=== PATIENT | male | born 1955 | race Caucasian/White ===

== ENCOUNTER 2017-09-22 19:07 | Emergency (ER) | payer BC ==
[2017-09-22 19:17] VITALS: TEMP 97.7
[2017-09-22] MEDS ORDERED: HYDROmorphone 0.5 MG/0.5 ML SYRINGE IVP STA (19:18)
--- NOTE | 2017-09-22 19:21 | ED ---
General Adult HPI - General Chief complaint: Fall Stated complaint: fall Time Seen by Provider: 09/22/17 19:15 Source: patient, EMS, RN notes reviewed Mode of arrival: EMS Limitations: no limitations - History of Present Illness Initial comments: This is a 62-year-old male who presents emergency Department complaining of right shoulder pain. Patient states he fell in the kitchen because he thinks he stepped on his laces of his boots. Patient states he fell forward hit his arm on the counter since then he's had right shoulder pain. Patient states he has no numbness or weakness. Patient is able to move his fingers and feel a sensation of his fingers. Patient denies any head or neck injury. Patient denies any loss consciousness. She denies any chest pain abdominal pain or lower extremity pain. - Related Data Home Medications Medication Instructions Recorded Confirmed Multivitamins, Thera [Multivitamin 1 tab PO DAILY 09/22/17 09/22/17 (formulary)] NIFEdipine [NIFEdipine ER] 30 mg PO DAILY 09/22/17 09/22/17 Pravastatin Sodium [Pravachol] 20 mg PO HS 09/22/17 09/22/17 Previous Rx's Medication Instructions Recorded Ibuprofen [Motrin] 600 mg PO Q6HR PRN #20 tab 09/22/17 Allergies Allergy/AdvReac Type Severity Reaction Status Date / Time No Known Allergies Allergy Unverified 09/22/17 19:40 Review of Systems ROS Statement: Those systems with pertinent positive or pertinent negative responses have been documented in the HPI. ROS Other: All systems not noted in ROS Statement are negative. Past Medical History Past Medical History: Hyperlipidemia, Hypertension History of Any Multi-Drug Resistant Organisms: None Reported Past Surgical History: No Surgical Hx Reported Past Psychological History: No Psychological Hx Reported Smoking Status: Never smoker Past Alcohol Use History: Occasional Past Drug Use History: None Reported General Exam - General Exam Comments Initial Comments: GENERAL Patient is well-developed and well-nourished. Patient is in moderate distress. EYES Patient's pupils are equal and round. Extraocular motion is intact SKIN Unremarkable NEURO The patient is alert and oriented 3 PYSCH Patient has normal interpersonal interactions. MUSCULOSKELETAL Patient's right shoulder started to palpation also there appears to be a deficit also consistent with a dislocation. Patient has good pulses and normal sensation of the right fingertips Limitations: no limitations Course Vital Signs 06/09/22/17 09/22/17 19:15 20:21 20:28 Temperature 97.7 F Pulse Rate 90 86 89 Respiratory 22 18 18 Rate Blood Pressure 176/88 164/87 168/86 O2 Sat by Pulse 99 99 99 Oximetry 09/22/17 09/22/17 20:33 20:36 Temperature Pulse Rate 103 H 86 Respiratory 18 18 Rate Blood Pressure 157/85 O2 Sat by Pulse 100 98 Oximetry Procedures - Orthopedic Joint Reduction Joint #1 Consent Obtained: written consent Time Out Performed: Yes Side: right Joint Reduction Location: shoulder Analgesia: procedural sedation Shoulder Technique Used (if applicable): traction/counter-traction, external rotation Post-Reduction Neuro Exam: intact Post-Reduction Vascular Exam: intact Post Reduction X-Ray Obtained: Yes Post Reduction X-Ray Results: reduced Splint Applied: Yes Patient Tolerated Procedure: well - Procedural Sedation Procedural Sedation Start Time: 20:30 Procedural Sedation Stop Time: 20:55 Indications: fracture/dislocation reduction Preparation: radiologic technologist applied, pulse oximeter, capnometry used, supplemental O2 applied IV Etomidate Dose (mgs): 15 Complications: none Patient Tolerated Procedure: well Medical Decision Making - Medical Decision Making X-ray shows a dislocated shoulder. Repeat x-ray was done after reduction shows a reduced shoulder Disposition Clinical Impression: Dislocation of right shoulder joint Instructions: Shoulder Dislocation (ED) Prescriptions: Ibuprofen [Motrin] 600 mg PO Q6HR PRN #20 tab PRN Reason: For pain Is patient prescribed a controlled substance at d/c from ED?: No Referrals: Ronen Ortega DO [Primary Care Provider] - 1-2 days Adrián Cid MD [STAFF PHYSICIAN] - 1-2 days Time of Disposition: 20:40
--- NOTE | 2017-09-22 19:54 | XR ---
EXAMINATION TYPE: XR shoulder complete RT DATE OF EXAM: 09/22/2017 COMPARISON: NONE HISTORY: Shoulder pain TECHNIQUE: 4 views FINDINGS: There is anterior dislocation of the humeral head. I see no fracture. IMPRESSION: Anterior dislocation of the shoulder joint.
[2017-09-22] MEDS ORDERED: ETOMIDATE 2 MG/ML 10 ML VIAL IVP STA (20:49)
[2017-09-22 20:52] VITALS: RESP 18
--- NOTE | 2017-09-22 21:04 | XR ---
EXAMINATION TYPE: XR shoulder limited RT DATE OF EXAM: 09/22/2017 COMPARISON: Today HISTORY: Pain TECHNIQUE: Single view FINDINGS: There is anatomic reduction of the glenohumeral joint. I see no fracture. IMPRESSION: Anatomic reduction compared to exam earlier today. No fracture seen.
[2017-09-22 21:13] VITALS: BP 154/89; PULSE 82
== END 2017-09-22 21:01 ==
LOC: EC 19:07
DX: S43.004A Unspecified dislocation of right shoulder joint, initial encounter (principal); E78.5 Hyperlipidemia, unspecified; I10 Essential (primary) hypertension; Z79.899 Other long term (current) drug therapy; W19.XXXA Unspecified fall, initial encounter; Y92.000 Kitchen of unspecified non-institutional (private) residence as the place of occurrence of the external cause
CPT/HCPCS: 73020; 73030; 99283; 23650; 99152; 99153; 96374; J1170

== ENCOUNTER → 2023-10-06 | Outpatient (CLI) | payer MEDICARE ==
--- NOTE | 2023-10-06 10:04 | NM ---
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 The patient exercised using a EDWARD protocol and 1 minute prior to peak exercise was injected with 25.4 mCi Tc 99m Sestamibi - Stress images obtained 20 minutes post injecti on. FINDINGS: Targeted heart rate was achieved during performance of the study. Review of stress and rest SPECT abraham ges demonstrates no distinct perfusion abnormality. Gated analysis shows normal wall motion with an estimated left ventricular ejection fraction of 58 %. IMPRESSION: No scintigraphic evidence for reversible ischemia
--- NOTE | 2023-10-06 10:07 | CA ---
Exercise Nuclear Stress Test Report Name: Raj Hernandez Exam Date: 10/06/2023 08:55 Exam Location: [facility] Stress Ht (in): 70 Wt (lb): 180 BSA: 2.00 Ordering Phys: Corinna Ashraf MD Referring Phys: AURORA,, Technologist: ITALIA,, Age: 68 Gender: M : 1955 Procedure CPT: Indications: I25.10 ATHSCL HEART DISEASE OF [place] CORONARY ART ICD-10 Codes: Patient History: ASCAD on CT Medications: Meds past 24 hrs: Pretest Chest Pain: STRESS TEST Iván Protocol Exercise Duration (min:sec): 10:[address] Depressions (mm): 0 Angina Score: 0 Saldaña Score: 10 Resting HR (bpm): 73 Peak HR (bpm): 147 Resting BP (mmHg): 166 / 95 Peak BP (mmHg): / 84 MPHR: 154 Target HR: 131 % MPHR: 95 METS: 11.5 Total Dose: Peak Dose: Atropine: Double Product: BP Response: Stress Termination: Reached target heart rate Stress Symptoms: No chest pain or symptoms Stress Summary: The patient's target heart rate was achieved, The hemodynamic response to exercise was normal ECG ANALYSIS Resting ECG: Sinus rhythm. Normal conduction. No arrhythmias. Normal repolarization. Stress ECG: No ECG evidence of ischemia with exercise. Ventricular premature contraction. CONCLUSIONS Patient falls into low-risk group (DTS >= +5). This associates the patient with an annual CV mortality <= 0.5%. Good exercise tolerance with no evidence of electrocardiographic changes with exercise Nuclear images will be reported separately Dr. Geoff West MD (Electronically Signed) Final Date: 06 October 2023 10:05
== END | disposition home or self-care (01) ==
LOC: RADNMMAIN 07:39
PROVIDERS: ATTEND Internal Medicine
DX: I25.10 Atherosclerotic heart disease of native coronary artery without angina pectoris (principal); E83.52 Hypercalcemia
CPT/HCPCS: 93017; 78452; A9500

== ENCOUNTER 2023-10-31 07:00 | Emergency (ER) | payer MEDICARE ==
[2023-10-31 07:08] VITALS: BP 129/74; PULSE 69; RESP 16; TEMP 97.8
[2023-10-31] MEDS: MORPHINE SULFATE 2 MG/ML SYRINGE IVP STA (07:37)
[2023-10-31] MEDS: LIDOCAINE 4% PATCH TOPICAL ONE (07:37)
[2023-10-31] MEDS: SODIUM CHLORIDE 0.9% 1,000 ML IV STA (07:37)
[2023-10-31] MEDS: KETOROLAC 15 MG/ML 1 ML VIAL IVP STA (07:37)
--- NOTE | 2023-10-31 07:44 | ED ---
Fall HPI - General Chief Complaint: Fall Stated Complaint: Fall Time Seen by Provider: 10/31/23 07:08 Source: patient, RN notes reviewed Mode of arrival: EMS Limitations: no limitations - History of Present Illness Initial Comments: This is a 68-year-old male who presents to the emergency department for a fall. Patient states that he was standing at his sink this morning after going to the bathroom and fell, landing with his back and left rib cage on the side of the bathtub. He is unsure how he fell. Denies any loss of consciousness or hitting his head. He did not have any chest pain or shortness of breath prior to the fall and is unsure if he slipped, lost his balance, or what exactly caused this. Denies any history of similar symptoms in the past. States that he did have a negative nuclear stress test earlier this month. Currently having pain over the left rib cage and mid back. Denies any other injuries. Not taking any blood thinners. States that after the fall he felt like it took his breath away and he was somewhat dizzy. Those symptoms have since started to subside, however he is still having fairly severe pain. MD Complaint: fall - Related Data Home Medications Medication Instructions Recorded Confirmed Multivitamins, Thera [Multivitamin 1 tab PO DAILY 09/22/17 09/22/17 (formulary)] NIFEdipine [NIFEdipine ER] 30 mg PO DAILY 09/22/17 09/22/17 Pravastatin Sodium [Pravachol] 20 mg PO HS 09/22/17 09/22/17 Previous Rx's Medication Instructions Recorded Ibuprofen [Motrin] 600 mg PO Q6HR PRN #20 tab 09/22/17 Cyclobenzaprine [Flexeril] 5 - 10 mg PO TID PRN #30 tablet 10/31/23 Lidocaine 5% Patch [Lidoderm 5% 1 patch TOPICAL DAILY PRN #30 patch 10/31/23 Patch] Naproxen Sodium 550 mg PO BID PRN #30 tablet 10/31/23 Allergies Allergy/AdvReac Type Severity Reaction Status Date / Time No Known Allergies Allergy Verified 10/31/23 07:08 Review of Systems ROS Statement: Those systems with pertinent positive or pertinent negative responses have been documented in the HPI. ROS Other: All systems not noted in ROS Statement are negative. Past Medical History Past Medical History: Hyperlipidemia, Hypertension History of Any Multi-Drug Resistant Organisms: None Reported Past Surgical History: No Surgical Hx Reported Past Psychological History: No Psychological Hx Reported Smoking Status: Never smoker Past Alcohol Use History: Occasional Past Drug Use History: None Reported General Exam Limitations: no limitations General appearance: alert, in no apparent distress Head exam: Present: atraumatic, normocephalic, normal inspection Eye exam: Present: normal appearance, PERRL, EOMI. Absent: scleral icterus, conjunctival injection, periorbital swelling Respiratory exam: Present: normal lung sounds bilaterally. Absent: respiratory distress, wheezes, rales, rhonchi, stridor Cardiovascular Exam: Present: regular rate, normal rhythm, normal heart sounds. Absent: systolic murmur, diastolic murmur, rubs, gallop, clicks GI/Abdominal exam: Present: soft, other (Tenderness to palpation over the left rib cage). Absent: distended Back exam: Present: other (Tenderness to palpation over the mid back) Neurological exam: Present: alert, oriented X3, CN II-XII intact Psychiatric exam: Present: normal affect, normal mood Course Vital Signs 10/31/23 07:01 Temperature 97.8 F Pulse Rate 69 Respiratory 16 Rate Blood Pressure 129/74 O2 Sat by Pulse 93 L Oximetry Medical Decision Making - Medical Decision Making This is a 68-year-old male who presents to the emergency department for pain in the left rib cage and back after a fall. Was pt. sent in by a medical professional or institution? @ -No Did you speak to anyone other than the patient for history? @ -No Did you review nursing and triage notes? @ -Yes, and I agree, it is accurate with regards to the patient's symptoms. Were old charts reviewed? @ -No Differential Diagnosis? @ -Differential rib/back pain: Rib fracture, rib contusion, back fracture, pulmonary contusion, pneumothorax, this is not meant to be an all-inclusive list. EKG interpreted by me (3pts min.)? @ -EKG interpreted by me demonstrating the following: Sinus rhythm. Ventricular rate 66 bpm, OR interval 198 ms, QRS duration 100 ms, QTc 397 ms. X-rays interpreted by me (1pt min.)? @ -X-ray of the chest and left rib cage obtained. My interpretation identifies no acute fractures. X-ray of the thoracic spine obtained. My interpretation also identifies no acute fractures. CT interpreted by me (1pt min.)? @ -Not obtained U/S interpreted by me (1pt. min.)? @ -Not obtained What testing was considered but not performed? (CT, X-rays, U/S, labs)? Why? @ -None What meds were considered but not given? Why? @ -None Did you discuss the management of the patient with other professionals? @ -No Did you reconcile home meds? @ -No Was smoking cessation discussed for >3mins.? @ -No Was critical care preformed (if so, how long)? @ -No Were there social determinants of health that impacted care today? How? (Homelessness, low income, unemployed, alcoholism, drug addiction, transportation, low edu. Level, literacy, decrease access to med. care, fdc, rehab)? @ -No Was there de-escalation of care discussed even if they declined? (Discuss DNR or withdrawal of care, Hospice)? @ -No What co-morbidities impacted this encounter? (DM, HTN, Smoking, COPD, CAD, Cancer, CVA, Hep., AIDS, mental health diagnosis, sleep apnea, morbid obesity)? @ -None Was patient admitted / discharged? @ -Discharged. Given that the circumstances around the fall were not entirely clear, we did proceed with more of a workup including lab work and an EKG. Lab work unremarkable. X-ray of the chest and left rib cage obtained revealing no acute process. X-ray of the thoracic spine also had no acute findings. I did order a UA, however the patient was unable to provide a urine sample in the emergency department. Pain was improved while in the emergency department and he was also treated with IV fluids. We discussed that hairline or small nondisplaced fractures are not always visualized on x-rays and I did offer a CT scan for further evaluation. However, given that this would not necessarily change the treatment plan, especially with regards to rib fractures, patient opted to avoid it at this time and he was comfortable with discharge home. Prescription for naproxen, Flexeril, and lidocaine patches provided with dosing instructions reviewed. He was also sent home with an incentive spirometer and advised to take several deep breaths an hour to reduce the risk of developing a secondary pneumonia. Patient discharged home in stable condition and advised to have close follow-up with his PCP. Case discussed with ED attending Dr. Mcmullen. Return precautions reviewed in depth, the patient is instructed to return to the emergency department with any new, worsening, or concerning symptoms. Patient verbalized understanding. Undiagnosed new problem with uncertain prognosis? @ -None Drug Therapy requiring intensive monitoring for toxicity (Heparin, Nitro, Insulin, Cardizem)? @ -None Were any procedures done? @ -None Diagnosis/symptom? @ -Fall, left rib contusion Acute, or Chronic, or Acute on Chronic? @ -Acute Uncomplicated (without systemic symptoms) or Complicated (systemic symptoms)? @ -Uncomplicated Side effects of treatment? @ -None Exacerbation, Progression, or Severe Exacerbation] @ -Not applicable Poses a threat to life or bodily function? @ -Unlikely - Lab Data Result diagrams: 10/31/23 07:51 10/31/23 07:51 Lab Results 10/31/23 10/31/23 10/31/23 Range/Units 07:51 07:51 07:51 WBC 6.1 (3.8-10.6) k/uL RBC 5.01 (4.30-5.90) m/uL Hgb 16.2 (13.0-17.5) gm/dL Hct 50.4 (39.0-53.0) % MCV 100.6 H (80.0-100.0) fL MCH 32.4 (25.0-35.0) pg MCHC 32.2 (31.0-37.0) g/dL RDW 13.3 (11.5-15.5) % Plt Count 153 (150-450) k/uL MPV 9.5 Neutrophils % 73 % Lymphocytes % 18 % Monocytes % 6 % Eosinophils % 1 % Basophils % 0 % Neutrophils # 4.4 (1.3-7.7) k/uL Lymphocytes # 1.1 (1.0-4.8) k/uL Monocytes # 0.4 (0-1.0) k/uL Eosinophils # 0.0 (0-0.7) k/uL Basophils # 0.0 (0-0.2) k/uL PT 10.6 (10.0-12.5) sec INR 1.0 (<1.2) Sodium 137 (137-145) mmol/L Potassium 4.6 (3.5-5.1) mmol/L Chloride 108 H (98-107) mmol/L Carbon Dioxide 24 (22-30) mmol/L Anion Gap 5 mmol/L BUN 23 H (9-20) mg/dL Creatinine 0.82 (0.66-1.25) mg/dL Est GFR (CKD-EPI)AfAm >90 (>60 ml/min/1.73 sqM) Est GFR (CKD-EPI)NonAf >90 (>60 ml/min/1.73 sqM) Glucose 130 H (74-99) mg/dL Calcium 9.3 (8.4-10.2) mg/dL Total Bilirubin 0.5 (0.2-1.3) mg/dL AST 25 (17-59) U/L ALT 22 (4-49) U/L Alkaline Phosphatase 52 (38-126) U/L Troponin I (0.000-0.034) ng/mL Total Protein 6.7 (6.3-8.2) g/dL Albumin 4.0 (3.5-5.0) g/dL 10/31/23 Range/Units 07:51 WBC (3.8-10.6) k/uL RBC (4.30-5.90) m/uL Hgb (13.0-17.5) gm/dL Hct (39.0-53.0) % MCV (80.0-100.0) fL MCH (25.0-35.0) pg MCHC (31.0-37.0) g/dL RDW (11.5-15.5) % Plt Count (150-450) k/uL MPV Neutrophils % % Lymphocytes % % Monocytes % % Eosinophils % % Basophils % % Neutrophils # (1.3-7.7) k/uL Lymphocytes # (1.0-4.8) k/uL Monocytes # (0-1.0) k/uL Eosinophils # (0-0.7) k/uL Basophils # (0-0.2) k/uL PT (10.0-12.5) sec INR (<1.2) Sodium (137-145) mmol/L Potassium (3.5-5.1) mmol/L Chloride (98-107) mmol/L Carbon Dioxide (22-30) mmol/L Anion Gap mmol/L BUN (9-20) mg/dL Creatinine (0.66-1.25) mg/dL Est GFR (CKD-EPI)AfAm (>60 ml/min/1.73 sqM) Est GFR (CKD-EPI)NonAf (>60 ml/min/1.73 sqM) Glucose (74-99) mg/dL Calcium (8.4-10.2) mg/dL Total Bilirubin (0.2-1.3) mg/dL AST (17-59) U/L ALT (4-49) U/L Alkaline Phosphatase (38-126) U/L Troponin I <0.012 (0.000-0.034) ng/mL Total Protein (6.3-8.2) g/dL Albumin (3.5-5.0) g/dL - Radiology Data Radiology results: report reviewed, image reviewed Disposition Clinical Impression: Fall, Contusion of rib on left side Disposition: HOME SELF-CARE Instructions (If sedation given, give patient instructions): Fall Prevention for Older Adults (ED), Rib Contusion (ED) Additional Instructions: Return to the emergency department with any new, worsening, or concerning symptoms. Take the naproxen twice daily with Tylenol as needed for pain relief. Take the Flexeril as 1 to 2 tablets up to 3 times daily and be aware that this may make you drowsy. You can apply the lidocaine patches daily. Make sure you take several deep breaths an hour despite the pain to reduce the risk of developing a secondary pneumonia. Follow up with your primary care provider in 1-2 days. Prescriptions: Cyclobenzaprine [Flexeril] 5 - 10 mg PO TID PRN #30 tablet PRN Reason: Pain Lidocaine 5% Patch [Lidoderm 5% Patch] 1 patch TOPICAL DAILY PRN #30 patch PRN Reason: Pain Naproxen Sodium 550 mg PO BID PRN #30 tablet PRN Reason: Pain Is patient prescribed a controlled substance at d/c from ED?: No Referrals: Corinna Ashraf MD [Primary Care Provider] - 1-2 days Time of Disposition: 08:46
[2023-10-31 08:06] LABS: Prothrombin Time 10.6 sec (10.0-12.5)
[2023-10-31 08:10] LABS: Basophils % (A) 0 %; Eosinophils % (A) 1 %; HCT 50.4 % (39.0-53.0); HGB 16.2 gm/dL (13.0-17.5); Lymphocytes # (A) 1.1 k/uL (1.0-4.8); Lymphocytes % (A) 18 %; MCH 32.4 pg (25.0-35.0); MCHC 32.2 g/dL (31.0-37.0); MCV 100.6 fL (80.0-100.0); Mean Platelet Volume 9.5; Monocytes # (A) 0.4 k/uL (0-1.0); Monocytes % (A) 6 %; Neutrophils # (A) 4.4 k/uL (1.3-7.7); Neutrophils % (A) 73 %; Platelet Count 153 k/uL (150-450); RBC 5.01 m/uL (4.30-5.90); RDW 13.3 % (11.5-15.5); WBC 6.1 k/uL (3.8-10.6)
--- NOTE | 2023-10-31 08:14 | XR ---
Chest and left ribs. HISTORY: Pain following fall. COMPARISON: None. TECHNIQUE: 5 views of the chest and ribs were obtained. FINDINGS: The lungs are clear and no pleural effusion, pleural thickening or pneumothorax. The heart and pulmonary vasculature are normal. There are no left rib fractures. The osseous structur es are intact. IMPRESSION: 1. No acute cardiopulmonary disease. 2. No left rib fractures.
[2023-10-31 08:15] LABS: ALT 22 U/L (4-49); AST 25 U/L (17-59); African American GFR (CKD) >90 (>60 ml/min/1.73 sqM); Alkaline Phosphatase 52 U/L (38-126); Anion Gap 5 mmol/L; Blood Urea Nitrogen 23 mg/dL (9-20); Calcium 9.3 mg/dL (8.4-10.2); Carbon Dioxide 24 mmol/L (22-30); Chloride 108 mmol/L (98-107); Glucose 130 mg/dL (74-99); Non-African American GFR(CKD) >90 (>60 ml/min/1.73 sqM); Potassium 4.6 mmol/L (3.5-5.1); Sodium 137 mmol/L (137-145); Total Bilirubin 0.5 mg/dL (0.2-1.3); Total Protein 6.7 g/dL (6.3-8.2)
--- NOTE | 2023-10-31 08:15 | XR ---
Thoracic spine. HISTORY: Pain following fall. COMPARISON: None. TECHNIQUE: 4 views of the thoracic spine were obtained. The thoracic vertebral segments are normal in height and alignment there is no fracture or malalignme nt. There is mild degenerative disease in the lower thoracic spine. The paraspinal soft tissues are unremarkable. IMPRESSION: No evidence of acute thoracic spine trauma
== END 2023-10-31 09:45 | disposition home or self-care (01) ==
LOC: EC 07:00
DX: S20.212A Contusion of left front wall of thorax, initial encounter (principal); W01.0XXA Fall on same level from slipping, tripping and stumbling without subsequent striking against object, initial encounter
CPT/HCPCS: 36415; 93005; 80053; 84484; 85025; 85610; 71101; 72070; 99284; 96374; 96375; 96361 ×2; J2270; J1885

== ENCOUNTER 2023-11-10 21:00 | Inpatient (IN) | payer MEDICARE ==
[~2023-11-10 21:00] MED LIST: LORazepam 2 MG/ML INJ ONE; ONDANSETRON 4 MG/2 ML VIAL ONE; SODIUM CHLORIDE 0.9% 1,000 ML BAG ONE; diphenhydrAMINE 50 MG/ML 1 ML VIAL ONE
[2023-11-10] MEDS ORDERED: SODIUM CHLORIDE 0.9% 1,000 ML BAG ONE (23:00)
[2023-11-11] MEDS ORDERED: ACETAMINOPHEN TAB 325 MG TAB ONE (09:58)
[2023-11-11] MEDS ORDERED: PANTOPRAZOLE 40 MG TABLET PO ONE (09:58)
[2023-11-11] MEDS ORDERED: LOSARTAN 50 MG TAB ONE ×2 (09:58→20:07)
[2023-11-11] MEDS ORDERED: ASPIRIN 81 MG ONE (09:58)
[2023-11-11] MEDS ORDERED: methylPREDNISolone SOD SUCCI 40 MG/ML 1 ML VIAL ONE ×2 (09:59→20:08)
[2023-11-11] MEDS ORDERED: ENOXAPARIN 40 MG/0.4 ML SYRINGE SQ ONE (09:59)
[2023-11-11] MEDS ORDERED: MECLIZINE 25 MG TAB ONE ×2 (09:59→20:07)
[2023-11-11] MEDS ORDERED: METOPROLOL SUCCINATE (ER) 25 MG TAB.ER.24H PO ONE ×2 (09:59→20:07)
[2023-11-11] MEDS ORDERED: PRAVASTATIN SODIUM 40 MG TAB PO ONE (20:07)
[2023-11-11] MEDS ORDERED: SODIUM CHLORIDE 0.9% 1,000 ML BAG ONE (23:59)
[2023-11-12] MEDS ORDERED: ASPIRIN 81 MG ONE (08:35)
[2023-11-12] MEDS ORDERED: methylPREDNISolone SOD SUCCI 40 MG/ML 1 ML VIAL ONE ×2 (08:35→19:44)
[2023-11-12] MEDS ORDERED: PANTOPRAZOLE 40 MG TABLET PO ONE (08:35)
[2023-11-12] MEDS ORDERED: LOSARTAN 50 MG TAB ONE ×2 (08:35→19:44)
[2023-11-12] MEDS ORDERED: MECLIZINE 25 MG TAB ONE ×2 (08:36→19:45)
[2023-11-12] MEDS ORDERED: ENOXAPARIN 40 MG/0.4 ML SYRINGE SQ ONE (08:36)
[2023-11-12] MEDS ORDERED: diazePAM 5 MG TAB ONE (11:47)
[2023-11-12] MEDS ORDERED: METOPROLOL SUCCINATE (ER) 25 MG TAB.ER.24H PO ONE (19:45)
[2023-11-12] MEDS ORDERED: PRAVASTATIN SODIUM 40 MG TAB PO ONE (19:45)
[2023-11-12] MEDS ORDERED: SODIUM CHLORIDE 0.9% 1,000 ML BAG ONE (23:59)
[2023-11-13] MEDS ORDERED: LOSARTAN 50 MG TAB ONE (09:00)
[2023-11-13] MEDS ORDERED: ASPIRIN 81 MG ONE (09:00)
[2023-11-13] MEDS ORDERED: methylPREDNISolone SOD SUCCI 40 MG/ML 1 ML VIAL ONE (09:00)
[2023-11-13] MEDS ORDERED: PANTOPRAZOLE 40 MG TABLET PO ONE (09:00)
[2023-11-13] MEDS ORDERED: MECLIZINE 25 MG TAB ONE (09:00)
--- NOTE | 2023-12-10 13:39 | CT ---
EXAM: CT head without contrast. CT angiogram head and neck with contrast. DATE OF EXAM: 11/10/23 INDICATION: Patient age:KINDRA WATTS : 1955 Reason for study: DIZZINESS, HEADACHE HX OF VERTIGO COMPARISON: None, please note PACS downtime occurred during the radiologist interpretation of these i mages with limited priors/reports. TECHNIQUE: Multiple axial CT images of the brain were obtained without IV contrast. One or more CT dose reductio n strategies were utilized during this examination. . Axially acquired helical CT angiogram of the head was obtained with contrast utilizing 65 cc of Isovu e-370 administered intravenously. Axial images are supplemented with 3D reconstructions which were po st-processed at an independent workstation. Axially acquired helical CT Angiogram of the Neck was obtained with and without contrast utilizing 65 mL of Isovue-370 administered intravenously. Axial images are supplemented with coronal and sagittal MIP reconstructions. 3D reconstructions were also performed and were post-processed at an [employer] workstation. Estimated carotid stenosis was calculated using the NASCET criteria. One or more CT dose reduction strategies were utilized during this examination. DLP 1752.2 mGycm. FINDINGS: Extra-axial spaces: No abnormal extra-axial fluid collections. Ventricular system: Within normal limits Cerebral parenchyma: No acute intraparenchymal hemorrhage or mass effect. The burris-white junction is well differentiated. Cerebellum: Unremarkable. Mass effect: No evidence of midline shift. Intracranial vasculature: unremarkable Soft tissues: Normal. Calvarium/osseous structures: No depressed skull fracture. Paranasal sinuses and mastoid air cells: Clear. Visualized orbits: Orbital contents are intact. No evidence of acute intracranial hemorrhage, mass effect, or midline shift. The ventricles, sulci, a nd cisterns are unremarkable. Vertebral arteries: The vertebral arteries are patent. Codominant vertebral arteries. Basilar artery: The basilar artery is intact. The basilar artery bifurcation is normal. Internal Carotid arteries: The cervical, petrous, cavernous and supraclinoid segments are normal. SRINATH: Patent with no evidence of aneurysm. ACOM: Present without evidence of aneurysm. MCA: Patent with no evidence of aneurysm. BUTTER WRAPPER: Patent with no evidence of aneurysm. PCOM: Hypoplastic bilaterally. RIGHT CAROTID SYSTEM: The common carotid artery is patent. Carotid bifurcation demonstrates calcified plaque with 21% stenosis. The carotid arteries are patent. LEFT CAROTID SYSTEM: The common carotid artery is patent. Carotid bifurcation demonstrates calcified plaque with 35% stenosis.. The carotid arteries are patent. The origins of the great vessels and vertebral arteries appear unremarkable. Vertebral arteries are c odominant and patent. No aneurysmal dilation or dissection. IMPRESSIONS: 1. No evidence for dissection or aneurysm of the vertebral or carotid arteries. 2. No significant stenosis involving the carotid bifurcations. 3. No evidence of high-grade stenosis or intracranial aneurysm. 4. No acute intracranial process.
--- NOTE | 2023-12-10 19:59 | MR ---
BlaineRaj funez : 1955 EXAMINATION TYPE: MR brain wo/w con DATE OF EXAM: 11/12/2023 COMPARISON: NONE available during downtime HISTORY: 68-year-old male with vertigo and falling TECHNIQUE: Multiplanar, multisequence images of the brain and brainstem were acquired before and aft er administration of 5 mL IV Gadavist. Diffusion weighted imaging is performed. FINDINGS: No evidence for acute infarction, hemorrhage, mass, mass effect, midline shift, herniation, effacemen t of basal cisterns, or extra-axial fluid collection. The ventricles and sulci are age-appropriate. Major intracranial flow voids are intact. T2/FLAIR weighted sequences show only minimal scattered bright signal change in both cerebral hemisph eres numbering approximately 5 on the right and less than 5 on the left. Partially empty sella, otherwise, midline structures demonstrate normal morphology. The craniocervic al junction is normal. Post contrast images demonstrate no evidence of pathologic enhancement. Dural venous sinuses are pat ent. The cerebellopontine angles are clear. No appreciable enhancement in the region of the internal auditory canals. Slight rightward nasal septal deviation. The visualized sinuses are clear and the globes are intact. IMPRESSION: No acute intracranial abnormality seen. Only minimal burden of chronic small vessel ischemic disease.
== END 2023-11-13 01:01 | disposition home or self-care (01) | DRG 149 ==
LOC: 3SCARD 21:00
PROVIDERS: ADMIT Internal Medicine; ATTEND Internal Medicine
DX: H83.03 Labyrinthitis, bilateral (principal); E11.9 Type 2 diabetes mellitus without complications; I10 Essential (primary) hypertension; E78.5 Hyperlipidemia, unspecified; I25.10 Atherosclerotic heart disease of native coronary artery without angina pectoris; I73.00 Raynaud's syndrome without gangrene; H91.93 Unspecified hearing loss, bilateral; F41.9 Anxiety disorder, unspecified; R29.6 Repeated falls; Z79.82 Long term (current) use of aspirin; Z79.899 Other long term (current) drug therapy; Z97.4 Presence of external hearing-aid; Z91.81 History of falling; Z86.73 Personal history of transient ischemic attack (TIA), and cerebral infarction without residual deficits
CPT/HCPCS: 70450; 70496; 70498; 70553; 80053; 83690; 83735; 84100; 84439; 84443; 85025; 93005; 96361; 96374; 96375; 99285

== ENCOUNTER 2024-04-19 10:26 | Day surgery (SDC) | payer MEDICARE ==
[2024-04-14 12:39] VITALS: BMI 27.3
[~2024-04-19 10:26] MED LIST changes: +LACTATED RINGERS 1,000 ML IV SCH; -LORazepam 2 MG/ML INJ ONE; +ONDANSETRON 4 MG/2 ML VIAL IVP PRN; -ONDANSETRON 4 MG/2 ML VIAL ONE; -SODIUM CHLORIDE 0.9% 1,000 ML BAG ONE; -diphenhydrAMINE 50 MG/ML 1 ML VIAL ONE
[2024-04-19] MEDS: LIDOCAINE 1% (10MG/ML) FOR IV START INTRADERMA PRN (11:00)
[2024-04-19] MEDS: LACTATED RINGERS 1,000 ML IV ONE (11:00)
[2024-04-19 11:06] VITALS: RESP 16; TEMP 97.6
[2024-04-19] MEDS ORDERED: LIDOCAINE 1% INJ 10MG/ML (20 ML MDV) ONE (11:31)
[2024-04-19] MEDS ORDERED: PROPOFOL 10 MG/ML 20 ML VIAL IV ONE (11:31)
--- NOTE | 2024-04-19 11:47 | P.PCN ---
Date of Procedure: 04/19/24 Procedure(s) Performed: BRIEF HISTORY: Patient is a 68-year-old pleasant white male scheduled for an elective colonoscopy as a part of evaluation by history of colon polyps. His last colonoscopy was 7 years ago. PROCEDURE PERFORMED: Colonoscopy. PREOPERATIVE DIAGNOSIS: History of colon polyp. IV sedation per Anesthesia. PROCEDURE: After informed consent was obtained, the patient, was brought into the endoscopy unit. IV sedation was administered by Anesthesia under continuous monitoring. Digital rectal examination was normal. Initially the Olympus CF-160 flexible video colonoscope was then inserted in the rectum, gradually advanced into the cecum without any difficulty. Careful examination was performed as the scope was gradually being withdrawn. Ileocecal valve and the appendiceal orifice were visualized and appeared normal. Prep was excellent. Mucosa of the cecum, ascending colon, transverse colon, descending colon, sigmoid colon, and rectum appeared normal. Moderate sigmoid diverticulosis. Retroflexion was performed in the rectum and grade 2 internal hemorrhoid were seen. The patient tolerated the procedure well. IMPRESSION: Normal-appearing colon from rectum to cecum no evidence of colorectal neoplasia. Moderate sigmoid diverticulosis Grade 2 internal hemorrhoids RECOMMENDATIONS: Findings of this examination were discussed with the patient as well as his family. He was advised to have repeat screening colonoscopy in 10 years.
[2024-04-19 12:14] VITALS: BP 119/77; PULSE 68
== END 2024-04-19 12:22 | disposition home or self-care (01) ==
LOC: ORWHC2ENDO 10:26
PROVIDERS: ATTEND Internal Medicine Gastroenterology
DX: Z12.11 Encounter for screening for malignant neoplasm of colon (principal); K57.30 Diverticulosis of large intestine without perforation or abscess without bleeding; K64.1 Second degree hemorrhoids; I10 Essential (primary) hypertension; E78.5 Hyperlipidemia, unspecified; Z79.82 Long term (current) use of aspirin; Z79.899 Other long term (current) drug therapy; Z98.890 Other specified postprocedural states; Z86.0100 Personal history of colon polyps, unspecified
CPT/HCPCS: J2003; J2704; G0105; 45378